=== PATIENT | male | born 1930 | race Two or more races ===

== ENCOUNTER 2018-04-28 11:04 | Inpatient (IN) | payer OTHER, MEDICAID ==
[~2018-04-28] VITALS: Ht 175.3 cm; Wt 75.8 kg
[2018-04-28 11:09] VITALS: Ht 175.3 cm; Wt 75.8 kg
[2018-04-28 11:49] LABS: BASOPHIL % 0.6 % (0-2); PLATELET COUNT 250 x10^3mcL (130-400)
[2018-04-28 11:56] LABS: RED CELL DISTRIBUTION WIDTH 14.7 % (11.5-14.5)
[2018-04-28 11:59] LABS: CALCIUM 8.4 mg/dL (8.5-10.1); CHLORIDE SERUM 106 mmol/L (98-107); CREATININE SERUM 1.1 mg/dL (0.7-1.3); GLUCOSE SERUM 112 mg/dL (74-106); POTASSIUM SERUM 3.8 mmol/L (3.5-5.1); SODIUM SERUM 142 mmol/L (136-145)
[2018-04-28 12:01] LABS: ALKALINE PHOSPHATASE 69 U/L (46-116); ALT/SGPT 37 U/L (16-63); AST/SGOT 20 U/L (15-37); BILIRUBIN TOTAL 0.28 mg/dL (0.20-1.00)
[2018-04-28 12:06] LABS: ALBUMIN 2.3 g/dL (3.4-5.0)
[2018-04-28 13:48] LABS: UA SPECIFIC GRAVITY >=1.030 (1.005-1.035); microscopic required? YES; urine erythrocyte 3+ (NEGATIVE)
[2018-04-28] MEDS ORDERED: GOOD SENSE ASPI81 M3 PO (15:40)
[2018-04-28] MEDS ORDERED: LISINOPRIL10 MG PO (15:41)
[2018-04-28] MEDS ORDERED: NOR10 PO (15:41)
[2018-04-28] MEDS ORDERED: TAMSULOSIN HYD0.4 M1 PO (15:41)
[2018-04-28] MEDS ORDERED: DITROPAN XL5 MG (15:41)
[2018-04-28] MEDS ORDERED: SIMVASTATIN40 M1 PO (15:42)
[2018-04-28] MEDS ORDERED: CARVEDILOL25 M1 PO (15:42)
[2018-04-28 16:47] VITALS: BP 144/61
[2018-04-29 05:07] VITALS: BP 142/58
[2018-04-29 06:33] LABS: CALCIUM 8.2 mg/dL (8.5-10.1); CARBON DIOXIDE 28.3 mmol/L (21-32); CHLORIDE SERUM 107 mmol/L (98-107); CREATININE SERUM 0.9 mg/dL (0.7-1.3); GLUCOSE SERUM 94 mg/dL (74-106); POTASSIUM SERUM 3.8 mmol/L (3.5-5.1); SODIUM SERUM 142 mmol/L (136-145); TRIGLYCERIDES 75 mg/dL (<150)
[2018-04-29 06:34] LABS: CHOLESTEROL 112 mg/dL (<200); CHOLESTEROL/HDL RATIO 4.1; HDL CHOLESTEROL 27 mg/dL (40-60)
[2018-04-29 07:04] LABS: BASOPHIL % 0.5 % (0-2); PLATELET COUNT 216 x10^3mcL (130-400); RED CELL DISTRIBUTION WIDTH 15.1 % (11.5-14.5)
[2018-04-29 08:05] VITALS: BP 155/67
[2018-04-29 08:06] VITALS: BP 125/79
[2018-04-29 12:15] VITALS: BP 149/64
[2018-04-29 16:23] VITALS: BP 138/62
[2018-04-29 21:52] VITALS: BP 135/69
[2018-04-30] VITALS (7 sets, daily range): BP systolic 107–150; BP diastolic 52–72
[2018-05-01 06:37] VITALS: BP 108/54
[2018-05-01 08:45] VITALS: BP 131/60
[2018-05-01 09:46] LABS: BASOPHIL % 0.3 % (0-2); PLATELET COUNT 218 x10^3mcL (130-400)
[2018-05-01 09:48] LABS: RED CELL DISTRIBUTION WIDTH 14.9 % (11.5-14.5)
[2018-05-01 09:56] LABS: CALCIUM 8.5 mg/dL (8.5-10.1); CARBON DIOXIDE 28.5 mmol/L (21-32); CHLORIDE SERUM 108 mmol/L (98-107); CREATININE SERUM 1.2 mg/dL (0.7-1.3); GLUCOSE SERUM 114 mg/dL (74-106); POTASSIUM SERUM 3.9 mmol/L (3.5-5.1); SODIUM SERUM 142 mmol/L (136-145)
[2018-05-01 12:35] VITALS: BP 127/60
[2018-05-01 17:50] VITALS: BP 148/92
[2018-05-01 20:48] VITALS: BP 100/63
[2018-05-02 06:14] VITALS: BP 99/68
[2018-05-02 08:38] VITALS: BP 141/60
[2018-05-02 12:27] VITALS: BP 145/73
[2018-05-02 16:43] VITALS: BP 138/70
[2018-05-02 20:16] VITALS: BP 118/54
[2018-05-03 04:57] VITALS: BP 119/60
[2018-05-03 09:30] VITALS: BP 111/59
[2018-05-03 17:34] VITALS: BP 128/50
[2018-05-04 06:05] VITALS: BP 140/65
[2018-05-04 09:25] VITALS: BP 107/52
[2018-05-04 12:45] VITALS: BP 121/49
[2018-05-04 16:00] VITALS: BP 156/89
[2018-05-04 20:45] VITALS: BP 101/55
[2018-05-05 05:47] VITALS: BP 126/64
[2018-05-05 09:34] VITALS: BP 180/120
[2018-05-05 10:35] VITALS: BP 154/81
[2018-05-05 17:29] VITALS: BP 141/73
[2018-05-05 21:17] VITALS: BP 131/54
[2018-05-06] VITALS (7 sets, daily range): BP systolic 96–161; BP diastolic 36–78
== END 2018-05-06 22:09 | disposition short-term general hospital (02) | DRG 305 ==
LOC: ED 11:04 → MU 14:09 → CANBEDREQ 14:12 → DU 15:35 → MU 05-06 12:10
PROVIDERS: Emergency Medicine; ADMIT Internal Medicine Pulmonary Disease
DX: I11.9 Hypertensive heart disease without heart failure (principal); N39.0 Urinary tract infection, site not specified; I25.119 Atherosclerotic heart disease of native coronary artery with unspecified angina pectoris; R07.9 Chest pain, unspecified; R55 Syncope and collapse; F03.90 Unspecified dementia, unspecified severity, without behavioral disturbance, psychotic disturbance, mood disturbance, and anxiety; N40.0 Benign prostatic hyperplasia without lower urinary tract symptoms; E78.5 Hyperlipidemia, unspecified; F17.210 Nicotine dependence, cigarettes, uncomplicated; I25.2 Old myocardial infarction; Z86.73 Personal history of transient ischemic attack (TIA), and cerebral infarction without residual deficits; Z91.14 Patient's other noncompliance with medication regimen; Z79.82 Long term (current) use of aspirin
CPT/HCPCS: A9500; J0696; J2270; J2785; Q0092